=== PATIENT | female | born 1980 | race Caucasian/White ===

== ENCOUNTER 2018-10-16 10:35 | Day surgery (SDC) | payer OTHER ==
[2018-10-16] MEDS ORDERED: METOCLOPRAMIDE 10 MG INJ IV (12:30)
[2018-10-16] MEDS ORDERED: FENTAnyl 50 MCG/ML VIAL IV ×2 (12:30)
[2018-10-16] MEDS ORDERED: MEPERIDINE 25 MG INJ IV (12:30)
[2018-10-16] MEDS ORDERED: DIPHENHYDRAMINE 50 MG INJ IV (12:30)
[2018-10-16] MEDS ORDERED: HYDROmorphONE 1 MG/5 ML IV SYRINGE IV ×2 (12:30)
[2018-10-16] MEDS ORDERED: ALBUTEROL 0.083% (NEB) 2.5 MG/3 ML AMP HHN (12:30)
[2018-10-16] MEDS ORDERED: ONDANSETRON 4 MG INJ IV (12:30)
[2018-10-16] MEDS ORDERED: FENTAnyl 50 MCG/ML VIAL (13:05)
[2018-10-16] MEDS ORDERED: LIDOCAINE 100 MG SYRINGE (14:35)
[2018-10-16] MEDS ORDERED: ROCURONIUM 50 MG INJ (14:35)
[2018-10-16] MEDS ORDERED: SUGAMMADEX SODIUM 200 MG/2 ML VIAL IV (14:35)
[2018-10-16] MEDS ORDERED: PROPOFOL 20 ML (14:35)
[2018-10-16] MEDS ORDERED: SUCCINYLCHOLINE CHLORIDE 100 MG/5 ML SYG IV (14:35)
[2018-10-16] MEDS ORDERED: CEFAZOLIN 1 GM INJ (14:35)
[2018-10-16] MEDS ORDERED: HYDROCODONE/APAP (5/325) TAB PO (15:00)
[2018-10-16] MEDS: HYDROmorphONE 1 MG/5 ML IV SYRINGE IV (15:05)
== END 2018-10-16 16:39 | disposition home or self-care (01) ==
LOC: SDS 10:35
DX: N20.0 Calculus of kidney (principal); I12.9 Hypertensive chronic kidney disease with stage 1 through stage 4 chronic kidney disease, or unspecified chronic kidney disease; N18.9 Chronic kidney disease, unspecified
CPT/HCPCS: 50590; 74018; 74430; 87086; 88300